=== PATIENT | male | born 1995 | race Asian ===

== ENCOUNTER 2016-10-12 06:49 | Emergency (ER) | payer OTHER ==
[~2016-10-12] VITALS: Ht 182.9 cm; Wt 89.7 kg
[2016-10-12 06:54] VITALS: TEMP 36.5; Ht 182.9 cm; Wt 89.7 kg
[2016-10-12] MEDS ORDERED: KETOROLAC TROMETHAMINE 30 MG/ML VIAL IV STA (07:11)
[2016-10-12] MEDS ORDERED: SODIUM CHLORIDE 0.9% 1000ML 1,000 ML IV STA (07:11)
[2016-10-12] MEDS ORDERED: ONDANSETRON INJ 2 MG/ML 2 ML VIAL IV STA (07:11)
[2016-10-12 07:23] LABS: BASO % 0.3 %; BASO ABS # 0.04 K/uL (0-0.2); COMPLETE YES; EOS % 2.4 %; HEMATOCRIT 45.8 % (42-52); LYMPH % 16.5 %; LYMPH ABS # 2.58 K/uL (1.2-3.4); MEAN CELL VOLUME 87.2 fL (80-100); MEAN CORPUSCULAR HEMOGLOBIN 30.1 pg (25-34); MEAN CORPUSCULAR HGB CONC 34.5 g/dl (32-36); MEAN PLATELET VOLUME 8.8 fL (7.4-10.4); NEUT % 73.8 %; PLATELET COUNT 258 K/uL (130-400); RED BLOOD COUNT 5.25 M/uL (4.7-6.1)
--- NOTE | 2016-10-12 07:35 | DIAGNOSTIC IMAGING REPORT ---
CHEST ONE VIEW PORTABLE CLINICAL HISTORY: Abdominal pain and vomiting COMPARISON STUDY: No previous studies for comparison. FINDINGS: The cardiac and mediastinal contours are normal. There is no evidence of focal pulmonary consolidation. There is no evidence of failure. No pleural effusions are visualized.[ No free air is visualized. IMPRESSION: No active disease in the chest. Electronically signed by: Preet Balderas M.D. 10/12/2016 7:34 AM Dictated Date/Time: 10/12/2016 7:34 AM
[2016-10-12 07:42] LABS: BUN/CREATININE RATIO 13.1 (10-20); CREATININE 1.1 mg/dl (0.60-1.40); POTASSIUM 3.4 mmol/L (3.5-5.1)
[2016-10-12] MEDS ORDERED: LIDOCAINE HCL 2% VISC SOLN 20 ML UDC PO STA (10:02)
[2016-10-12] MEDS ORDERED: FENTANYL CITRATE INJ 50 MCG/1 ML 2 ML VIAL IV STA (10:02)
[2016-10-12] MEDS ORDERED: ALUMINUM/MAGNESIUM SUSP 30 ML UDC PO STA (10:02)
[2016-10-12] MEDS ORDERED: OPTIRAY 320 IV PRN (10:15)
--- NOTE | 2016-10-12 11:04 | DIAGNOSTIC IMAGING REPORT ---
ABDOMEN AND PELVIS CT WITH IV CONTRAST CT DOSE: 382.57 mGy.cm HISTORY: Pain abd pain TECHNIQUE: Multiaxial CT images of the abdomen and pelvis were performed following the use of intravenous contrast. COMPARISON STUDY: None. FINDINGS: The lung bases are clear. The liver, spleen, gallbladder, pancreas, kidneys, and adrenal glands are within normal limits. No bowel wall thickening or obstruction. The pelvic organs are unremarkable. No suspicious lytic or blastic osseous lesions. Several fluid-filled loops of small bowel. Appearance suggests a nonspecific enteritis. IMPRESSION: Mild small bowel enteritis. Examination of the abdomen and pelvis is otherwise negative. Electronically signed by: Hank Ordoñez M.D. 10/12/2016 11:03 AM Dictated Date/Time: 10/12/2016 11:01 AM
[2016-10-12] MEDS ORDERED: ONDA4TAB10 SL (11:14)
--- NOTE | 2016-10-12 11:15 | EMERGENCY ROOM VISIT NOTE ---
History Report prepared by Claire: Sumeet Alarcon Under the Supervision of: Dr. Casper Luu D.O. First contact with patient: 06:59 Chief Complaint: ABDOMINAL PAIN Stated Complaint: STOMACH ACHE, VOMITING History of Present Illness The patient is a 21 year old male who presents to the Emergency Room with complaints of a persistent illness that started yesterday. He states that he has upper abdominal pain, and has also had some vomiting and diarrhea. The patient has had 1 episode of vomiting since the onset of the illness, and has had 2 episodes of diarrhea. He denies any back pain. The patient does not take any daily medications. He smokes cigarettes, and drinks occasional alcohol, although he notes that he has not had any alcohol this week. Source of History: patient Onset: Yesterday Position: other (global - illness) Timing: other (persistent) Associated Symptoms: + diarrhea, + vomiting, No back pain Note: No other associated symptoms noted. Review of Systems See HPI for pertinent positives & negatives. A total of 10 systems reviewed and were otherwise negative. Past Medical & Surgical Medical Problems: (1) No chronic problems Family History No pertinent family history Social History Smoking Status: Current Every Day Smoker Alcohol Use: occasionally Housing Status: lives with roommate Occupation Status: student Current/Historical Medications Scheduled Ondasetron Odt (Zofran Odt), 4 MG SL Q6H Allergies Coded Allergies: No Known Allergies (Unverified , 10/12/16) Physical Exam Vital Signs Date Time Temp Pulse Resp B/P Pulse Ox O2 Delivery O2 Flow Rate FiO2 10/12/16 10:27 64 16 134/73 96 10/12/16 09:26 73 16 126/81 97 Room Air 10/12/16 07:56 70 18 127/81 95 Room Air 10/12/16 06:54 36.5 74 18 123/86 97 Room Air Physical Exam CONSTITUTIONAL/VITAL SIGNS: Reviewed / noted above. GENERAL: Non-toxic in appearance. INTEGUMENTARY: Warm, dry, and [place]. HEAD: Normocephalic. EYES: without scleral icterus or trauma. ENT/OROPHARYNX: clear and moist. LYMPHADENOPATHY/NECK: Is supple without lymphadenopathy or meningismus. RESPIRATORY: Lungs clear and equal. CARDIOVASCULAR: Regular rate and rhythm. GI/ABDOMEN: Mild tenderness in the epigastric and left upper quadrant area. EXTREMITIES: Warm and well perfused. BACK: No CVA tenderness. NEUROLOGICAL: Intact without focal deficits. PSYCHIATRIC: normal affect. MUSCULOSKELETAL: Normally developed with good muscle tone. Medical Decision & Procedures ER Provider Diagnostic Interpretation: Radiology results as stated below per my review and radiologist interpretation: CHEST ONE VIEW PORTABLE CLINICAL HISTORY: Abdominal pain and vomiting COMPARISON STUDY: No previous studies for comparison. FINDINGS: The cardiac and mediastinal contours are normal. There is no evidence of focal pulmonary consolidation. There is no evidence of failure. No pleural effusions are visualized.[ No free air is visualized. IMPRESSION: No active disease in the chest. Electronically signed by: Preet Balderas M.D. 10/12/2016 7:34 AM Dictated Date/Time: 10/12/2016 7:34 AM ABDOMEN AND PELVIS CT WITH IV CONTRAST CT DOSE: 382.57 mGy.cm HISTORY: Pain abd pain TECHNIQUE: Multiaxial CT images of the abdomen and pelvis were performed following the use of intravenous contrast. COMPARISON STUDY: None. FINDINGS: The lung bases are clear. The liver, spleen, gallbladder, pancreas, kidneys, and adrenal glands are within normal limits. No bowel wall thickening or obstruction. The pelvic organs are unremarkable. No suspicious lytic or blastic osseous lesions. Several fluid-filled loops of small bowel. Appearance suggests a nonspecific enteritis. IMPRESSION: Mild small bowel enteritis. Examination of the abdomen and pelvis is otherwise negative. Electronically signed by: Hank Ordoñez M.D. 10/12/2016 11:03 AM Dictated Date/Time: 10/12/2016 11:01 AM Laboratory Results 10/12/16 07:11 Red Blood Count 5.25, Mean Corpuscular Volume 87.2, Mean Corpuscular Hemoglobin 30.1, Mean Corpuscular Hemoglobin Concent 34.5, Mean Platelet Volume 8.8, Neutrophils (%) (Auto) 73.8, Lymphocytes (%) (Auto) 16.5, Monocytes (%) (Auto) 6.0, Eosinophils (%) (Auto) 2.4, Basophils (%) (Auto) 0.3, Neutrophils # (Auto) 11.50, Lymphocytes # (Auto) 2.58, Monocytes # (Auto) 0.94, Eosinophils # (Auto) 0.38, Basophils # (Auto) 0.04 10/12/16 07:11 Test 10/12/16 07:11 White Blood Count 15.60 K/uL (4.8-10.8) Red Blood Count 5.25 M/uL (4.7-6.1) Hemoglobin 15.8 g/dL (14.0-18.0) Hematocrit 45.8 % (42-52) Mean Corpuscular Volume 87.2 fL (80-100) Mean Corpuscular Hemoglobin 30.1 pg (25-34) Mean Corpuscular Hemoglobin Concent 34.5 g/dl (32-36) Platelet Count 258 K/uL (130-400) Mean Platelet Volume 8.8 fL (7.4-10.4) Neutrophils (%) (Auto) 73.8 % Lymphocytes (%) (Auto) 16.5 % Monocytes (%) (Auto) 6.0 % Eosinophils (%) (Auto) 2.4 % Basophils (%) (Auto) 0.3 % Neutrophils # (Auto) 11.50 K/uL (1.4-6.5) Lymphocytes # (Auto) 2.58 K/uL (1.2-3.4) Monocytes # (Auto) 0.94 K/uL (0.11-0.59) Eosinophils # (Auto) 0.38 K/uL (0-0.5) Basophils # (Auto) 0.04 K/uL (0-0.2) RDW Standard Deviation 37.7 fL (36.4-46.3) RDW Coefficient of Variation 11.8 % (11.5-14.5) Immature Granulocyte % (Auto) 1.0 % Immature Granulocyte # (Auto) 0.16 K/uL (0.00-0.02) Anion Gap 8.0 mmol/L (3-11) Est Creatinine Clear Calc Drug Dose 116.6 ml/min Estimated GFR () 110.6 Estimated GFR (Non- 95.5 BUN/Creatinine Ratio 13.1 (10-20) Calcium Level 9.0 mg/dl (8.5-10.1) Total Bilirubin 0.8 mg/dl (0.2-1) Direct Bilirubin 0.2 mg/dl (0-0.2) Aspartate Amino Transf (AST/SGOT) 16 U/L (15-37) Alanine Aminotransferase (ALT/SGPT) 41 U/L (12-78) Alkaline Phosphatase 73 U/L (45-117) Total Protein 7.8 gm/dl (6.4-8.2) Albumin 4.3 gm/dl (3.4-5.0) Lipase 137 U/L (73-393) Laboratory results as stated above per my review. Medications Administered Medications (Trade) Dose Ordered Sig/Maximus Route Start Time Stop Time Status Last Admin Dose Admin Sodium Chloride (Nss 1000ml) 1,000 ml @ 999 mls/hr Q1H1M STAT IV 10/12/16 07:11 10/12/16 08:11 DC 10/12/16 07:18 999 MLS/HR Ondansetron HCl (Zofran Inj) 4 mg NOW STAT IV 10/12/16 07:11 10/12/16 07:13 DC 10/12/16 07:18 4 MG Ketorolac Tromethamine (Toradol Inj) 30 mg NOW STAT IV 10/12/16 07:11 10/12/16 07:13 DC 10/12/16 07:18 30 MG Fentanyl Citrate (Fentanyl Inj) 100 mcg NOW STAT IV 10/12/16 10:02 10/12/16 10:03 DC 10/12/16 10:24 100 MCG Al Hydroxide/Mg Hydroxide (Maalox Susp) 30 ml NOW STAT PO 10/12/16 10:02 10/12/16 10:03 DC 10/12/16 10:25 30 ML Lidocaine HCl (Viscous Lidocaine 2% Soln) 10 ml NOW STAT PO 10/12/16 10:02 10/12/16 10:03 DC 10/12/16 10:25 10 ML ED Course 0701: Previous medical records were reviewed. The patient was evaluated in room B6. A complete history and physical examination was performed. 0711: Ordered Toradol Inj 30 mg IV, Zofran Inj 4 mg IV, NSS 1000 ml @ 999 mls/ hr IV. 1001: I reevaluated and updated the patient. 1002: Ordered Viscous Lidocain 2% Soln 10 ml PO, Maalox Susp 30 ml PO, Fentanyl Inj 100 mcg IV. 1116: On reevaluation, the patient is resting comfortably. I discussed the results and findings with the patient. He verbalized agreement of the treatment plan. He was discharged home. Medical Decision Differential considered: pancreatitis, hepatitis, or acute cholecystitis, AAA, UTI, pyelonephritis, kidney stones, appendicitis, diverticulitis, shingles, bowel obstruction mesenteric ischemia, intussusception,hernia, testicular torsion. This is a 22-year-old male who presents to the ED with a chief complaint of epigastric abdominal pain, vomiting and diarrhea. The patient states that his symptoms started yesterday. He states that he has had one episode of vomiting and 2 episodes of diarrhea. His pain is mostly in the epigastric area and left upper quadrant. He has not had any fevers. Denies alcohol consumption recently. No chest pains or upper respiratory symptoms. Denies any flank or back pain. No urinary symptoms. No blood in the stool or trauma. His vital signs are normal. Physical exam revealed some mild tenderness to the epigastric and left upper quadrant. White blood count was 15.6. Complete metabolic panel was normal. A chest x-ray was negative for acute disease. CT scan of the abdomen and pelvis reveals a mild small bowel enteritis. The patient was treated with IV fluids, IV Zofran and IV Toradol. He was given some IV fentanyl and a GI cocktail. He was felt to be stable for discharge and outpatient follow-up. Impression Primary Impression: Enteritis Scribe Attestation The scribe's documentation has been prepared under my direction and personally reviewed by me in its entirety. I confirm that the note above accurately reflects all work, treatment, procedures, and medical decision making performed by me. Departure Information Dispostion Home / Self-Care Prescriptions Ondasetron Odt (ZOFRAN ODT) 4 Mg Tab 4 MG SL Q6H for Nausea, #10 TAB Prov: Casper Luu D.O. 10/12/16 Referrals No Doctor, Assigned (PCP) Patient Instructions My [facility] Additional Instructions Your symptoms today are likely related to a viral type illness. This should pass with some time. Zofran: Allow one tablet to dissolve under the tongue every 6 hours as needed for nausea or vomiting. Take Tylenol for pain.
[2016-10-12 12:26] VITALS: BP 120/80; PULSE 68; O2SAT 95
[2016-10-12] MEDS ORDERED: DEXT5TAB PO (20:43)
== END 2016-10-12 12:47 | disposition home or self-care (01) ==
LOC: C.EDB 06:52
DX: K52.9 Noninfective gastroenteritis and colitis, unspecified (principal); F17.210 Nicotine dependence, cigarettes, uncomplicated

== ENCOUNTER 2016-10-12 20:08 | Emergency (ER) | payer OTHER ==
[~2016-10-12] VITALS: Ht 182.9 cm; Wt 89.7 kg
[~2016-10-12 20:08] MED LIST: ONDA4TAB10 SL
[2016-10-12 20:19] VITALS: TEMP 36.3; Ht 182.9 cm; Wt 89.7 kg
[2016-10-12] MEDS ORDERED: DEXT5TAB PO (20:43)
[2016-10-12 21:04] LABS: URINE APPEARANCE TURBID (CLEAR); URINE BILIRUBIN NEG (NEG); URINE COLOR YELLOW; URINE NITRITE NEG (NEG); URINE PH 8.5 (4.5-7.5); UROBILINOGEN NEG (NEG); ZZUR CULT IF INDIC CLEAN CATCH NO
[2016-10-12 21:05] LABS: BASO % 0.2 %; BASO ABS # 0.04 K/uL (0-0.2); COMPLETE YES; EOS % 0.1 %; IG% 0.5 %; LYMPH % 10.1 %; LYMPH ABS # 1.68 K/uL (1.2-3.4); MEAN CELL VOLUME 86.3 fL (80-100); MEAN CORPUSCULAR HGB CONC 34.8 g/dl (32-36); MEAN PLATELET VOLUME 8.7 fL (7.4-10.4); MONO % 4.5 %; NEUT % 84.6 %; PLATELET COUNT 283 K/uL (130-400); RED BLOOD COUNT 5.33 M/uL (4.7-6.1); WHITE BLOOD COUNT 16.69 K/uL (4.8-10.8)
[2016-10-12 21:06] LABS: MANUAL MICROSCOPIC REQUIRED? NO; REVIEW REQ? NO
[2016-10-12 21:19] LABS: ALB/GLOB RATIO 1.4 (0.9-2); BUN/CREATININE RATIO 9.3 (10-20); CALCIUM 9.4 mg/dl (8.5-10.1); CREATININE 0.91 mg/dl (0.60-1.40); POTASSIUM 3.4 mmol/L (3.5-5.1)
[2016-10-12] MEDS ORDERED: ONDANSETRON INJ 2 MG/ML 2 ML VIAL IV STA (21:40)
[2016-10-12] MEDS ORDERED: FAMOTIDINE 20MG/102 ML D5W IV STA (21:40)
[2016-10-12] MEDS ORDERED: MoRPHine SULFATE 10 MG/ML CARP/VIAL IV STA (21:40)
[2016-10-12] MEDS ORDERED: SODIUM CHLORIDE 0.9% 1000ML 1,000 ML IV STA (21:44)
[2016-10-12] MEDS ORDERED: PANTOprazole INJ 40 MG in SYRINGE 0 ML IV ONE (21:45)
[2016-10-12 22:27] VITALS: BP 130/76; PULSE 65; O2SAT 95
--- NOTE | 2016-10-12 22:29 | EMERGENCY ROOM VISIT NOTE ---
History First contact with patient: 21:32 Chief Complaint: ABDOMINAL PAIN Stated Complaint: STOMACH ACHE, VOMITING Nursing Triage Summary: nausea and vomitting all day states he was here earlier states he is not getting any better History of Present Illness The patient is a 21 year old male who presents to the Emergency Room with complaints of persistent epigastric pain. The patient was seen in the emergency room earlier today for the same symptoms. He states since he left the emergency room he had only one episode of vomiting. He took Zofran with relief. The patient is mainly complaining of pain. He does admit that he ate some rice today but that is all he was able to eat. The patient denies any fever, diarrhea, urinary symptoms. Review of Systems 10 system review was performed and was negative unless stated otherwise history of present illness. Past Medical/Surgical History Medical Problems: (1) No chronic problems Family History No pertinent family history Social History Smoking Status: Current Every Day Smoker Alcohol Use: occasionally Housing Status: lives with roommate Occupation Status: student Current/Historical Medications Scheduled Dextromethorphan-Phenylephrine (Cold Multi-Symptom Daytim), 1 TAB PO PRN UD Ondasetron Odt (Zofran Odt), 4 MG SL Q6H Allergies Coded Allergies: No Known Allergies (Unverified , 10/12/16) Physical Exam Vital Signs Date Time Temp Pulse Resp B/P Pulse Ox O2 Delivery O2 Flow Rate FiO2 10/12/16 21:56 86 20 134/81 100 Room Air 10/12/16 20:19 36.3 74 20 126/87 95 Room Air Physical Exam GENERAL: 21-year-old male appears in no acute distress. MENTAL Status: Alert and oriented 3. MOUTH: Mucosa is slightly dry. NECK: Supple, no lymphadenopathy noted. No carotid bruits noted. LUNGS: Clear auscultation without wheezes rales or rhonchi. CARDIAC: Regular rate and rhythm without murmur. Pulses is full and equal throughout. BACK: No CVA tenderness noted. ABDOMEN: Positive bowel sounds all 4 quadrants. Soft, moderate tenderness in the epigastric region otherwise nontender to palpation without organomegaly or masses. EXTREMITIES: No cyanosis or edema noted. Medical Decision & Procedures Laboratory Results 10/12/16 20:45 Red Blood Count 5.33, Mean Corpuscular Volume 86.3, Mean Corpuscular Hemoglobin 30.0, Mean Corpuscular Hemoglobin Concent 34.8, Mean Platelet Volume 8.7, Neutrophils (%) (Auto) 84.6, Lymphocytes (%) (Auto) 10.1, Monocytes (%) (Auto) 4.5, Eosinophils (%) (Auto) 0.1, Basophils (%) (Auto) 0.2, Neutrophils # (Auto) 14.12, Lymphocytes # (Auto) 1.68, Monocytes # (Auto) 0.75, Eosinophils # (Auto) 0.02, Basophils # (Auto) 0.04 10/12/16 20:45 Test 10/12/16 20:45 White Blood Count 16.69 K/uL (4.8-10.8) Red Blood Count 5.33 M/uL (4.7-6.1) Hemoglobin 16.0 g/dL (14.0-18.0) Hematocrit 46.0 % (42-52) Mean Corpuscular Volume 86.3 fL (80-100) Mean Corpuscular Hemoglobin 30.0 pg (25-34) Mean Corpuscular Hemoglobin Concent 34.8 g/dl (32-36) Platelet Count 283 K/uL (130-400) Mean Platelet Volume 8.7 fL (7.4-10.4) Neutrophils (%) (Auto) 84.6 % Lymphocytes (%) (Auto) 10.1 % Monocytes (%) (Auto) 4.5 % Eosinophils (%) (Auto) 0.1 % Basophils (%) (Auto) 0.2 % Neutrophils # (Auto) 14.12 K/uL (1.4-6.5) Lymphocytes # (Auto) 1.68 K/uL (1.2-3.4) Monocytes # (Auto) 0.75 K/uL (0.11-0.59) Eosinophils # (Auto) 0.02 K/uL (0-0.5) Basophils # (Auto) 0.04 K/uL (0-0.2) RDW Standard Deviation 37.5 fL (36.4-46.3) RDW Coefficient of Variation 11.9 % (11.5-14.5) Immature Granulocyte % (Auto) 0.5 % Immature Granulocyte # (Auto) 0.08 K/uL (0.00-0.02) Urine Color YELLOW Urine Appearance TURBID (CLEAR) Urine pH 8.5 (4.5-7.5) Urine Specific [place] 1.030 (1.000-1.030) Urine Protein NEG (NEG) Urine Glucose (UA) NEG (NEG) Urine Ketones 2+ (NEG) Urine Occult Blood NEG (NEG) Urine Nitrite NEG (NEG) Urine Bilirubin NEG (NEG) Urine Urobilinogen NEG (NEG) Urine Leukocyte Esterase NEG (NEG) Urine WBC (Auto) 1-5 /hpf (0-5) Urine RBC (Auto) 0-4 /hpf (0-4) Urine Hyaline Casts (Auto) 1-5 /lpf (0-5) Urine Epithelial Cells (Auto) 10-20 /lpf (0-5) Urine Bacteria (Auto) NEG (NEG) Anion Gap 9.0 mmol/L (3-11) Est Creatinine Clear Calc Drug Dose 141.0 ml/min Estimated GFR () 139.1 Estimated GFR (Non- 120.0 BUN/Creatinine Ratio 9.3 (10-20) Calcium Level 9.4 mg/dl (8.5-10.1) Total Bilirubin 1.0 mg/dl (0.2-1) Direct Bilirubin 0.2 mg/dl (0-0.2) Aspartate Amino Transf (AST/SGOT) 15 U/L (15-37) Alanine Aminotransferase (ALT/SGPT) 36 U/L (12-78) Alkaline Phosphatase 73 U/L (45-117) Total Protein 8.0 gm/dl (6.4-8.2) Albumin 4.6 gm/dl (3.4-5.0) Globulin 3.4 gm/dl (2.5-4.0) Albumin/Globulin Ratio 1.4 (0.9-2) Lipase 115 U/L (73-393) Medications Administered Medications (Trade) Dose Ordered Sig/Maximus Route Start Time Stop Time Status Last Admin Dose Admin Famotidine 20 mg 20 mg ONE STAT IV 10/12/16 21:40 10/12/16 21:44 DC 10/12/16 21:53 20 MG Pantoprazole Sodium/Syringe (Protonix Inj/ Syringe) 10 ml @ 5 mls/min NOW ONCE IV 10/12/16 21:45 10/12/16 21:46 DC 10/12/16 22:01 5 MLS/MIN Morphine Sulfate (MoRPHine SULFATE INJ) 6 mg NOW STAT IV 10/12/16 21:40 10/12/16 21:44 DC 10/12/16 21:53 6 MG Ondansetron HCl 4 mg 4 mg NOW STAT IV 10/12/16 21:40 10/12/16 21:44 DC 10/12/16 21:51 4 MG Sodium Chloride (Nss 1000ml) 1,000 ml @ 999 mls/hr Q1H1M STAT IV 10/12/16 21:44 10/12/16 22:44 10/12/16 21:47 999 MLS/HR ED Course The patient was evaluated. The patient's EMR was reviewed. The patient had a CT of the abdomen and pelvis this morning which revealed enteritis of the small intestine. His white count was elevated 15,000. The patient was discharged to home with Zofran. IV access was obtained. The patient was given 1 L normal saline wide-open. CBC and differential, renal profile, LFTs and lipase levels were ordered. The patient was given Protonix 40 mg IV push, Pepcid 20 mg IV, morphine 6 mg IV and Zofran 4 mg IV push. Urinalysis was ordered. Urinalysis was negative. Labs are reviewed and were similar to this morning for labs. The patient was reevaluated and was feeling slightly better. The patient was requesting a note to delay his final which is scheduled for tomorrow morning. A note was given to the patient. The patient was discharged home in stable condition. Medical Decision The patient already had the diagnosis of enteritis of the small intestine which went along with the patient's current symptoms. He only had one episode of vomiting since his discharge. I do not feel any additional imaging was necessary. He was mainly here for pain control. Impression Primary Impression: Acute gastroenteritis Departure Information Dispostion Home / Self-Care Condition GOOD Referrals [facility] (PCP) Forms HOME CARE DOCUMENTATION FORM, IMPORTANT VISIT INFORMATION Patient Instructions ED Gastritis, My [facility] Additional Instructions Drink water and Gatorade to stay hydrated. Follow bland diet for at least 48 hours. Then advance diet slowly as tolerated. Continue Zofran as needed for nausea. Recommend [id number] Maalox as directed on the label. Also recommend taking Zantac 150 mg at bedtime. Take omeprazole 20 mg once daily. All these medications are found [id number]. If symptoms persist recommend follow-up with a pizza cook when you return to [place] or return to the ER in the interim.
== END 2016-10-12 22:45 | disposition home or self-care (01) ==
LOC: C.EDB 20:09 → C.EDA 22:45
DX: K52.9 Noninfective gastroenteritis and colitis, unspecified (principal); F17.210 Nicotine dependence, cigarettes, uncomplicated